=== PATIENT | male | born 1980 | race Caucasian/White ===

== ENCOUNTER 2016-08-03 11:42 | Emergency (ER) | payer MEDICAID ==
[~2016-08-03] VITALS: Ht 175.3 cm; Wt 76.7 kg
[2016-08-03] MEDS ORDERED: PANT40TA3 PO (12:10)
[2016-08-03] MEDS ORDERED: ONDA8TAB12 PO (12:10)
[2016-08-03] MEDS ORDERED: NORT50CA PO (12:10)
[2016-08-03] MEDS ORDERED: HYDR-3240 PO (12:10)
[2016-08-03] MEDS ORDERED: LORA-446 PO (12:10)
[2016-08-03] MEDS ORDERED: HYDROmorphone 1 MG/ML, 1ML ONE (12:25)
[2016-08-03] MEDS ORDERED: FAMOTIDINE 20 MG/2 ML ONE (12:25)
[2016-08-03] MEDS ORDERED: ONDANSETRON 2MG/ML, 2ML ONE (12:25)
[2016-08-03] MEDS ORDERED: HYDROmorphone 1 MG/ML, 1ML IV ONE (12:30)
[2016-08-03] MEDS ORDERED: SODIUM CHLORIDE FLUSH 10ML SYR IVF ONE (12:30)
[2016-08-03] MEDS ORDERED: ONDANSETRON 2MG/ML, 2ML IVPush ONE (12:30)
[2016-08-03] MEDS ORDERED: FAMOTIDINE 20 MG/2 ML IVP ONE (12:30)
[2016-08-03] MEDS ORDERED: SODIUM CHLORIDE 0.9% 1,000ML IVBOLUS ONE (12:30)
[2016-08-03 13:00] LABS: BLOOD UREA NITROGEN 16 mg/dL (7-18)
[2016-08-03 13:04] LABS: ASPARTATE AMINO TRANSFERASE 20 U/L (15-37)
[2016-08-03] MEDS ORDERED: OMNIPAQUE 350 MG/ML, 100ML BOTTLE ONE (13:51)
[2016-08-03] MEDS ORDERED: PROMETHAZINE 25 MG/ML, 1ML ONE (14:22)
[2016-08-03] MEDS ORDERED: PROMETHAZINE 25 MG/ML, 1ML IM ONE (15:00)
[2016-08-03 15:31] VITALS: BP 114/74
== END 2016-08-03 15:34 | disposition home or self-care (01) ==
LOC: ED 15:15
DX: K52.9 Noninfective gastroenteritis and colitis, unspecified (principal); R10.9 Unspecified abdominal pain; G89.29 Other chronic pain; Z90.49 Acquired absence of other specified parts of digestive tract
CPT/HCPCS: 36415; 74020; 74177; 80053; 81001; 83690; 85025; 93005; 96361; 96372; 96374; 96375; 99285; J1170; J2405; J2550; J7030; Q9967; S0028